=== PATIENT | female | born 1990 | race Caucasian/White ===

== ENCOUNTER 2021-04-28 08:47 | Outpatient (CLI) | payer OTHER | END 2021-04-28 08:48 | disposition home or self-care (01) | LOC: CSHULT 08:47 | PROVIDERS: ATTEND Family Medicine | DX: O09.892 Supervision of other high risk pregnancies, second trimester (principal); Z3A.19 19 weeks gestation of pregnancy | CPT/HCPCS: 76805 ==

== ENCOUNTER 2021-06-27 18:58 | Day surgery (SDC) | payer OTHER ==
[2021-06-27] MEDS ORDERED: hydrALAZINE 20 MG/ML VIAL SLOW IVP PRN (20:32)
== END 2021-06-27 21:14 | disposition home or self-care (01) ==
LOC: CSHLD/OP 18:58
PROVIDERS: ATTEND Obstetrics & Gynecology
DX: O26.893 Other specified pregnancy related conditions, third trimester (principal); R10.2 Pelvic and perineal pain; O09.213 Supervision of pregnancy with history of pre-term labor, third trimester; Z3A.28 28 weeks gestation of pregnancy
CPT/HCPCS: 99282

== ENCOUNTER 2021-07-03 07:02 | Day surgery (SDC) | payer OTHER ==
[2021-07-03] MEDS ORDERED: Acetaminophen 500 MG TAB PO SCH (07:45)
[2021-07-03] MEDS ORDERED: Iron Sucrose Complex 500 MG in Sodium Chloride 0.9% 250 ML 250 ML IVPB SCH (08:00)
[2021-07-03 08:15] VITALS: BP 81/55; TEMP 97.9
== END 2021-07-03 13:37 | disposition home or self-care (01) ==
LOC: CSHLD/OP 07:02
PROVIDERS: ATTEND Family Medicine
DX: O99.013 Anemia complicating pregnancy, third trimester (principal); Z3A.29 29 weeks gestation of pregnancy; Z79.899 Other long term (current) drug therapy; T80.92XA Unspecified transfusion reaction, initial encounter
CPT/HCPCS: 96365; 96366; 96372; 99282; 99283; J1100; J1756; J7050

== ENCOUNTER 2021-07-03 20:38 | Emergency (ER) | payer OTHER ==
[2021-07-03] MEDS ORDERED: Dexamethasone 10 MG/ML VIAL ONE (21:17)
[2021-07-03] MEDS ORDERED: Acetaminophen 500 MG TAB ONE (21:29)
== END 2021-07-03 21:52 | disposition home or self-care (01) ==
LOC: CSHERS 20:38
DX: O99.891 Other specified diseases and conditions complicating pregnancy (principal); T80.92XA Unspecified transfusion reaction, initial encounter; Z3A.29 29 weeks gestation of pregnancy
CPT/HCPCS: J1100

== ENCOUNTER 2021-07-28 14:04 | Day surgery (SDC) | payer OTHER ==
[2021-07-28 14:53] VITALS: BMI 24.0
[2021-07-28] MEDS ORDERED: hydrALAZINE 20 MG/ML VIAL SLOW IVP PRN (15:17)
[2021-07-28] MEDS ORDERED: Acetaminophen/Codeine 30-300mg Tablet PO SCH (15:30)
[2021-07-28 16:07] LABS: Bilirubin Neg (Negative); Blood, Urine Negative (Negative); Clarity Clear (Clear); Glucose, Urine (Dipstick) Normal (Negative); Ketone, Urine Negative (Negative); Leukocyte 100 (Negative); Nitrite Negative (Negative); Protein, Urine (Dipstick) Negative (Neg-Trace)
[2021-07-28 16:20] LABS: Bacteria/HPF None Seen HPF (None Seen); Mucous/LPF 1+ LPF (<2+); RBC/HPF 0-3 HPF (0-3); Squamous Epithelial 0-3 HPF (0-3)
== END 2021-07-28 16:40 | disposition home or self-care (01) ==
LOC: CSHLD/OP 14:04
PROVIDERS: ATTEND Obstetrics & Gynecology
DX: O26.893 Other specified pregnancy related conditions, third trimester (principal); M54.50 Low back pain, unspecified; O09.213 Supervision of pregnancy with history of pre-term labor, third trimester; Z3A.33 33 weeks gestation of pregnancy
CPT/HCPCS: 81001; 99284

== ENCOUNTER 2021-08-20 12:39 | Day surgery (SDC) | payer OTHER ==
[2021-08-20] MEDS ORDERED: hydrALAZINE 20 MG/ML VIAL SLOW IVP PRN (15:39)
== END 2021-08-20 17:54 | disposition home or self-care (01) ==
LOC: CSHLD/OP 12:39
PROVIDERS: ATTEND Obstetrics & Gynecology
DX: O47.03 False labor before 37 completed weeks of gestation, third trimester (principal); O09.213 Supervision of pregnancy with history of pre-term labor, third trimester; Z3A.36 36 weeks gestation of pregnancy
CPT/HCPCS: 96360; 99283

== ENCOUNTER 2021-08-21 18:13 | Day surgery (SDC) | payer OTHER ==
[2021-08-21 18:45] VITALS: BMI 28.8
[2021-08-21] MEDS ORDERED: hydrALAZINE 20 MG/ML VIAL SLOW IVP PRN (19:09)
== END 2021-08-21 21:10 | disposition home or self-care (01) ==
LOC: CSHERS 18:13 → CSHLD/OP 18:18
PROVIDERS: ATTEND Obstetrics & Gynecology
DX: O47.03 False labor before 37 completed weeks of gestation, third trimester (principal); Z3A.36 36 weeks gestation of pregnancy
CPT/HCPCS: 99282

== ENCOUNTER 2021-08-28 19:32 | Day surgery (SDC) | payer OTHER ==
[2021-08-28 20:06] VITALS: BMI 27.1
[2021-08-28 20:41] LABS: Fetal Membranes Rupture No Membranes Rupture (No Rupture)
[2021-08-28] MEDS ORDERED: hydrALAZINE 20 MG/ML VIAL SLOW IVP PRN (21:12)
[2021-08-28] MEDS ORDERED: Morphine 10 MG/ML VIAL IM SCH (22:45)
[2021-08-28] MEDS ORDERED: Promethazine HCl 25 MG/ML VIAL IM SCH (22:45)
[2021-08-28] MEDS ORDERED: Acetaminophen 500 MG TAB PO PRN (23:41)
[2021-08-28] MEDS ORDERED: Ondansetron PF 4 MG/2 ML Vial IVP PRN (23:41)
== END 2021-08-29 07:20 | disposition home health service (06) ==
LOC: CSHLD/OP 19:32
PROVIDERS: ATTEND Family Medicine
DX: O99.891 Other specified diseases and conditions complicating pregnancy (principal); N89.8 Other specified noninflammatory disorders of vagina; O47.1 False labor at or after 37 completed weeks of gestation; O99.013 Anemia complicating pregnancy, third trimester; D50.9 Iron deficiency anemia, unspecified; O09.293 Supervision of pregnancy with other poor reproductive or obstetric history, third trimester; O09.213 Supervision of pregnancy with history of pre-term labor, third trimester; O09.13 Supervision of pregnancy with history of ectopic pregnancy, third trimester; Z3A.37 37 weeks gestation of pregnancy
CPT/HCPCS: 84112; 87480; 87510; 87660; 96372; 99285; J2270; J2550

== ENCOUNTER 2021-08-30 17:27 | Day surgery (SDC) | payer OTHER ==
[2021-08-30 18:38] VITALS: BMI 27.3
[2021-08-30] MEDS ORDERED: hydrALAZINE 20 MG/ML VIAL SLOW IVP PRN (21:39)
[2021-08-30] MEDS ORDERED: Butorphanol Tartrate 1 MG/ML VIAL SLOW IVP SCH (21:45)
[2021-08-30] MEDS ORDERED: Promethazine 25 MG TAB PO SCH (22:00)
== END 2021-08-30 22:20 | disposition home or self-care (01) ==
LOC: CSHLD/OP 17:27
PROVIDERS: ATTEND Obstetrics & Gynecology
DX: O47.1 False labor at or after 37 completed weeks of gestation (principal); Z3A.37 37 weeks gestation of pregnancy
CPT/HCPCS: 96372; 99283; J0595; Q0169

== ENCOUNTER 2021-09-03 13:16 | Inpatient (IN) | payer OTHER ==
[~2021-09-03 13:16] MED LIST: Bupivacaine 0.25% HCL 30 ML VIAL ONE; Bupivacaine HCl 0.5%/Epinephrine 1:200,000/PF 30 ml Vial ONE; ePHEDrine Sulfate 50 MG/10 ML VIAL ONE
[2021-09-03 13:54] VITALS: BMI 31.5
[2021-09-03] MEDS ORDERED: Butorphanol Tartrate 1 MG/ML VIAL ONE (15:38)
[2021-09-03] MEDS ORDERED: Misoprostol 200 MCG TAB PR PRN (15:45)
[2021-09-03] MEDS ORDERED: Diphenoxylate HCl/Atropine Tablet PO PRN (15:45)
[2021-09-03] MEDS ORDERED: Lidocaine 1% (PF) 30 ML VIAL SC PRN (15:45)
[2021-09-03] MEDS ORDERED: Ibuprofen 800 MG TAB PO PRN (15:45)
[2021-09-03] MEDS ORDERED: Ondansetron PF 4 MG/2 ML Vial IVP PRN ×3 (15:45→22:20)
[2021-09-03] MEDS ORDERED: NS w/ Oxytocin 30 units 500 ML IV SCH ×2 (15:45→23:00)
[2021-09-03] MEDS ORDERED: Butorphanol Tartrate 1 MG/ML VIAL SLOW IVP PRN (15:45)
[2021-09-03] MEDS ORDERED: Acetaminophen 500 MG TAB PO PRN (15:45)
[2021-09-03] MEDS ORDERED: Lactated Ringer's 1,000 ML IV SCH (15:45)
[2021-09-03] MEDS ORDERED: Promethazine HCl 25 MG/ML VIAL IM PRN ×3 (15:45→22:20)
[2021-09-03] MEDS ORDERED: Methylergonovine 0.2 MG/ML VIAL IM PRN (15:45)
[2021-09-03] MEDS ORDERED: HYDROcodone/Acetaminophen 5/325 mg Tablet PO PRN ×2 (15:45→22:20)
[2021-09-03] MEDS ORDERED: hydrALAZINE 20 MG/ML VIAL SLOW IVP PRN ×2 (15:45→22:20)
[2021-09-03 16:24] LABS: Hemoglobin 9.5 g/dL (12.0-15.5); Mean Corpuscular HGB CONC 31.1 g/dL (32.0-36.0); Mean Corpuscular Hemoglobin 23.9 pg (27.0-33.0); Mean Corpuscular Volume 76.6 fl (81.6-98.3); Mean Platelet Volume 11.3 fl (7.4-10.4); Platelet Count 267 10x3/uL (150-450); Red Blood Cell (RBC) Count 3.98 10x6/uL (3.90-5.03)
[2021-09-03 16:58] LABS: Syphilis Antibody Nonreactive (Nonreactive); Syphilis Antibody Index 0.06 S/CO (<1.00 Non-Reactive)
[2021-09-03 17:00] LABS: Hep B Surf Ag Non-Reactive S/CO (NonReactive)
[2021-09-03 17:01] LABS: HBSAg Index 0.22 S/CO (0-0.99)
[2021-09-03] MEDS ORDERED: Fentanyl 2 mcg/Bup 0.1% Cadd 100 ML ONE (17:24)
[2021-09-03] MEDS ORDERED: diphenhydrAMINE 50 MG/ML VIAL IVP PRN (18:35)
[2021-09-03] MEDS ORDERED: Acetaminophen 325 MG TAB PO PRN (18:35)
[2021-09-03] MEDS ORDERED: Naloxone HCl 0.4 mg/ml Vial IVP PRN ×2 (18:35)
[2021-09-03] MEDS ORDERED: Moisturizing Cream (Eucerin) 113 GM JAR TOP PRN (18:35)
[2021-09-03] MEDS ORDERED: Lactated Ringer's 500 ML IV PRN (18:40)
[2021-09-03] MEDS ORDERED: Fentanyl 2 mcg/Bupivacaine 0.1% Cassette 100 ML EPIDURAL SCH (18:45)
[2021-09-03] MEDS ORDERED: Communication Order-Pharmacy FS SCH (18:45)
[2021-09-03] MEDS: ePHEDrine Sulfate 50 MG/10 ML VIAL SLOW IVP PRN ×2 (18:48→18:57)
[2021-09-03] MEDS ORDERED: PHENYLEPHRINE-NS 100 MCG/ML 10 ML SYRINGE ONE (19:17)
[2021-09-03 20:33] LABS: pH (Cord, venous) 7.284 (7.250-7.350)
[2021-09-03] MEDS: NS w/ Oxytocin 30 units 500 ML IV SCH ×2 (20:45→21:54)
[2021-09-03 20:52] LABS: SARS-CoV-2 NAA Rapid Test DETECTED (NotDetected)
[2021-09-03] MEDS ORDERED: Boostrix 0.5 ML (Tdap) VIAL IM ONE (22:20)
[2021-09-03] MEDS ORDERED: Bisacodyl 10 MG SUPP PR PRN (22:20)
[2021-09-03] MEDS ORDERED: Milk Of Magnesia 30 ML UDCUP PO PRN (22:20)
[2021-09-03] MEDS ORDERED: diphenhydrAMINE 25 MG CAP PO PRN (22:20)
[2021-09-03] MEDS ORDERED: Lanolin Ointment 7 GM TUBE TOP PRN (22:20)
[2021-09-03] MEDS ORDERED: Benzocaine-Menthol 82.5 ML CAN TOP PRN (22:20)
[2021-09-03] MEDS ORDERED: Docusate 100 MG CAP PO SCH (23:15)
[2021-09-04] MEDS: Ibuprofen 800 MG TAB PO SCH ×3 (07:52→16:46)
[2021-09-04] MEDS: Prenatal Vitamin 1 TAB PO SCH (08:38)
[2021-09-04] MEDS: Ferrous Sulfate 325 MG TAB PO SCH ×2 (08:38→16:46)
[2021-09-04] MEDS: Docusate 100 MG CAP PO SCH ×2 (08:38→21:55)
[2021-09-05] MEDS: Ibuprofen 800 MG TAB PO SCH ×2 (00:55→08:40)
[2021-09-05] MEDS: Ferrous Sulfate 325 MG TAB PO SCH (08:39)
[2021-09-05] MEDS: Prenatal Vitamin 1 TAB PO SCH (08:40)
[2021-09-05] MEDS: Docusate 100 MG CAP PO SCH (08:40)
[2021-09-05 08:49] VITALS: BP 97/52; TEMP 97.9
== END 2021-09-05 12:35 | disposition home or self-care (01) | DRG 807 ==
LOC: CSHLD/OP 13:16 → CSHLD 15:47 → CSHPP 09-04 00:25
PROVIDERS: ADMIT Family Medicine; ATTEND Family Medicine
PROC: 10E0XZZ Delivery of Products of Conception, External Approach (ICD-10-PCS; principal; 2021-09-03)
PROC: 10907ZC Drainage of Amniotic Fluid, Therapeutic from Products of Conception, Via Natural or Artificial Opening (ICD-10-PCS; 2021-09-03)
PROC: 0HQ9XZZ Repair Perineum Skin, External Approach (ICD-10-PCS; 2021-09-03)
DX: O69.81X0 Labor and delivery complicated by cord around neck, without compression, not applicable or unspecified (principal); Z37.0 Single live birth; Z79.899 Other long term (current) drug therapy; Z3A.38 38 weeks gestation of pregnancy; O70.0 First degree perineal laceration during delivery; O69.89X0 Labor and delivery complicated by other cord complications, not applicable or unspecified
CPT/HCPCS: 82805; 86780; 86850; 86900; 86901; 87340; J0595; J2590; J7120; S0020; U0002